=== PATIENT | female | born 1985 | race Hispanic/Latino ===

== ENCOUNTER 2018-02-26 06:35 | Inpatient (IN) | payer BC ==
[2018-02-26] MEDS ORDERED: Methylergonovine 0.2 MG/ML VIAL IM PRN (07:43)
[2018-02-26] MEDS ORDERED: Lidocaine 1% (PF) 30 ML VIAL SC PRN (07:43)
[2018-02-26] MEDS ORDERED: Diphenoxylate HCl/Atropine Tablet PO PRN ×2 (07:43)
[2018-02-26] MEDS ORDERED: Carboprost 250 MCG/ML AMP IM PRN (07:43)
[2018-02-26] MEDS ORDERED: Ibuprofen 800 MG TAB PO PRN (07:43)
[2018-02-26] MEDS ORDERED: Promethazine HCl 25 MG/ML VIAL IM PRN (07:43)
[2018-02-26] MEDS ORDERED: LR / Pitocin 40 units/1000 ml 1,000 ML IV PRN (07:43)
[2018-02-26] MEDS ORDERED: Ondansetron HCl/PF 4 MG/2 ML Vial IVP PRN ×2 (07:43→14:13)
[2018-02-26] MEDS ORDERED: Acetaminophen 500 MG TAB PO PRN (07:43)
[2018-02-26] MEDS ORDERED: HYDROcodone/Acetaminophen 5/325 mg Tablet PO PRN ×2 (07:43)
[2018-02-26] MEDS ORDERED: Misoprostol 200 MCG TAB PR PRN (07:43)
[2018-02-26] MEDS ORDERED: Lactated Ringer's 1,000 ML IV SCH (07:45)
--- NOTE | 2018-02-26 08:01 | PDOC.LDHP ---
Labor and Delivery H&P HPI: 32 y/o at 38w1d, patient of Dr. Hancock, present with painful contractions since this morning. Denies VB, LOF, or decreased FM. ROS neg for HEENT, CV, pulm, GI, , neuro, psych, skin, musculoskeletal, or constitutional symptoms other than mentioned above. OB History Details: 1 prior LTCS, followed by successful Current complications: gestational diabetes Current medications: pre- vitamins Previous surgical history: low tranverse CS Allergies/Adverse Reactions: Allergies Allergy/AdvReac Type Severity Reaction Status Date / Time No Known Allergies Allergy Verified 08/17/15 09:03 Social history: none - Physical Exam Vital signs reviewed and normal: yes General: NAD, resting Lungs: nonlabored breathing Abdomen: gravid Extremeties: no edema FHT: category 1 [place] contractions every: 3-5 mins - Vaginal Exam cm dilated: 4 Effacement: 90% Station: -1 - OB Labs Blood type: A RH: positive Antibody Screen: negative HIV: negative RPR: negative HEPSAg: negative 1 hour GCT: positive 3 hour GTT: positive GBS: negative Rubella: immune - Assessment L&D Assessment: term patient in labor - Plan Plan: admit to L&D, labor augmentation if indicated, informed consent obtained, anesthesia consult for pain management -: Dr. Hancock notified
[2018-02-26 08:19] LABS: Hemoglobin 13.7 g/dL (12.0-16.0); Mean Corpuscular HGB CONC 34.3 g/dL (32.0-36.0); Mean Corpuscular Hemoglobin 29.4 pg (27.0-31.0); Mean Corpuscular Volume 85.7 fl (81.0-99.0); Mean Platelet Volume 10.4 fL (7.4-10.4); Platelet Count 149 thou/uL (130-400); RBC Distribution Width 13.1 % (11.5-14.5); Red Blood Cell (RBC) Count 4.67 mill/uL (4.20-5.40); White Blood Cell (WBC) Count 10.6 thou/uL (4.8-10.8)
[2018-02-26 08:28] LABS: Glucose 82 mg/dL (70-105)
[2018-02-26 08:50] LABS: Syphilis Antibody Nonreactive (Nonreactive); Syphilis Antibody Index 0.04 S/CO (<1.00 Non-Reactive)
[2018-02-26 08:51] LABS: HBSAg Index 0.15 S/CO (0-0.99); Hep B Surf Ag Non-Reactive S/CO (NonReactive)
--- NOTE | 2018-02-26 09:58 | PDOC.LDPN ---
Labor & Delivery Progress Note - Subjective Subjective: painful contractions - Objective Vital signs reviewed and normal: yes General: breathing through contractions Dilation: 8 Effacement: 100% Station: 0 FHT: category 1 [place] contractions every: 3 AROM: clear fluid - Assessment (1) 38 weeks gestation of Code(s): Z3A.38 - 38 WEEKS GESTATION OF Current Visit: Yes Status : Acute (2) Gestational diabetes mellitus (GDM) Code(s): O24.419 - GESTATIONAL DIABETES MELLITUS IN , UNSP CONTROL Current Visit: Yes Status: Acute (3) History of section Code(s): Z98.89 - OTHER SPECIFIED POSTPROCEDURAL STATES * DO NOT USE * Current Visit: No Status: Acute Plan: continue plan of care -: A/P: Active labor, consented for TOLAC, anticapte transition to 2nd stage of labor soon.
[2018-02-26] MEDS ORDERED: LR / Pitocin 40 units/1000 ml 1,000 ML ONE (10:24)
--- NOTE | 2018-02-26 11:05 | PDOC.OPDEL ---
OB Operative/Delivery Note Delivery Dr/Surgeon: Santi Pre-Delivery Diagnosis: active labor Procedure/Post Delivery Dx: vaginal delivery after CS Weeks gestation: 38 Anesthesia: local (to perineum) - Findings A Sex: female Weight: 9 lb 10 oz - 1 min: 9 - 5 min: 9 - Additional Findings/Plan Placenta delivered: spontaneous Repaired Obstetrical Laceration: 1st degree (left sidewall) Estimated blood loss: 300ml Compilations/Other Findings: Shoulder dystocia resolved with suprapubic pressure and McRobert's, delivery from head to shoulders <20 sec. Right should was anterior shoulder, moving UE well immediately after delivery. Post delivery plan: routine recovery
[2018-02-26] MEDS ORDERED: Adacel (T-DAP) 0.5 ML VIAL IM ONE (14:13)
[2018-02-26] MEDS ORDERED: Benzocaine/Menthol 20-0.5% 60 ML CAN TOP PRN (14:13)
[2018-02-26] MEDS ORDERED: Bisacodyl 10 MG SUPP PR PRN (14:13)
[2018-02-26] MEDS ORDERED: LR / Pitocin 40 units/1000 ml 1,000 ML IV SCH (14:13)
[2018-02-26] MEDS ORDERED: Acetaminophen/Codeine 30-300mg Tablet PO PRN ×2 (14:13)
[2018-02-26] MEDS ORDERED: Milk Of Magnesia 30 ML UDCUP PO PRN (14:13)
[2018-02-26] MEDS: Ibuprofen 800 MG TAB PO SCH ×2 (16:20→21:09)
[2018-02-26] MEDS: Ferrous Sulfate 325 MG TAB PO SCH (17:40)
[2018-02-26] MEDS: Docusate Calcium (SURFAK) 240 MG CAP PO SCH (21:07)
[2018-02-27] MEDS: Ibuprofen 800 MG TAB PO SCH ×3 (05:06→21:17)
--- NOTE | 2018-02-27 08:53 | PDOC.PP ---
Post Progress Note Post Day #: 1 Subjective: nursing well, no concerns, not sure if she wants DC today or tomorrow PO intake tolerated: yes Flatus: yes Ambulation: yes Vital Signs (12 hours) Temp Pulse Resp BP 02/27/18 08:00 98.2 F 70 20 111/76 02/27/18 05:00 98.0 F 66 20 02/27/18 00:00 99.0 F 73 20 109/65 Weight Weight 191 lb - Physical Examination General: NAD Respiratory: non-labored breathing Abdominal: no distention Fundus firm & at: below umb Extremities: negative homans (B) Result Diagrams: 02/26/18 08:07 02/26/18 08:07 Additional Labs: Post Labs Blood Type A POSITIVE 02/26/18 08:07 Hep Bs Antigen Non-Reactive S/CO (NonReactive) 02/26/18 08:07 (1) 38 weeks gestation of Code(s): Z3A.38 - 38 WEEKS GESTATION OF Status: Acute (2) Gestational diabetes mellitus (GDM) Code(s): O24.419 - GESTATIONAL DIABETES MELLITUS IN , UNSP CONTROL Status: Acute (3) History of section Code(s): Z98.89 - OTHER SPECIFIED POSTPROCEDURAL STATES * DO NOT USE * Status : Acute - Assessment/Plan PPD 1 p following active labor. Likely DC tomorrow.
[2018-02-27] MEDS: Docusate Calcium (SURFAK) 240 MG CAP PO SCH ×2 (09:29→21:17)
[2018-02-27] MEDS: Ferrous Sulfate 325 MG TAB PO SCH ×2 (09:29→16:26)
[2018-02-27 20:52] VITALS: BP 114/60; TEMP 97.7
[2018-02-28] MEDS: Ibuprofen 800 MG TAB PO SCH (04:31)
[2018-02-28] MEDS: Ferrous Sulfate 325 MG TAB PO SCH (08:31)
[2018-02-28] MEDS: Docusate Calcium (SURFAK) 240 MG CAP PO SCH (08:31)
--- NOTE | 2018-02-28 12:07 | PDOC.PP ---
Post Progress Note Post Day #: 2 Subjective: no concerns PO intake tolerated: yes Flatus: yes Ambulation: yes Vital Signs (12 hours) Temp Pulse Resp 02/28/18 07:55 97.7 F 71 20 Weight Weight 191 lb - Physical Examination General: NAD Respiratory: non-labored breathing Fundus firm & at: below umb Skin: no rash Neurological: no gross focal deficits Psychiatric: A&Ox3, normal affect Result Diagrams: 02/26/18 08:07 02/26/18 08:07 Additional Labs: Post Labs Blood Type A POSITIVE 02/26/18 08:07 Hep Bs Antigen Non-Reactive S/CO (NonReactive) 02/26/18 08:07 (1) 38 weeks gestation of Code(s): Z3A.38 - 38 WEEKS GESTATION OF Status: Acute (2) Gestational diabetes mellitus (GDM) Code(s): O24.419 - GESTATIONAL DIABETES MELLITUS IN , UNSP CONTROL Status: Acute (3) History of section Code(s): Z98.89 - OTHER SPECIFIED POSTPROCEDURAL STATES * DO NOT USE * Status : Acute - Assessment/Plan PPD2 doing well, DC home.
== END 2018-02-28 14:15 | disposition home or self-care (01) | DRG 775 ==
LOC: L&D/OP 06:35 → L&D 07:49 → 3SW 14:02
PROVIDERS: ADMIT Obstetrics & Gynecology; ATTEND Obstetrics & Gynecology
PROC: 10E0XZZ Delivery of Products of Conception, External Approach (ICD-10-PCS; principal; 2018-02-26)
DX: O34.211 Maternal care for low transverse scar from previous cesarean delivery (principal); O24.429 Gestational diabetes mellitus in childbirth, unspecified control; O70.0 First degree perineal laceration during delivery; Z3A.38 38 weeks gestation of pregnancy; Z37.0 Single live birth
CPT/HCPCS: 36415; 82947; 85027; 86780; 86850; 86900; 86901; 87340; 99285; J0595; J2001

== ENCOUNTER 2020-12-13 12:07 | Outpatient (CLI) | payer OTHER ==
--- NOTE | 2020-12-13 13:16 | RAD ---
PA AND LATERAL VIEWS CHEST: Date: 12/13/2020 HISTORY: Shortness of breath. FINDINGS: Comparison made with exam of 07/13/2004. The cardiomediastinum is normal. The lungs are expanded and clear. The bony thorax is normal. IMPRESSION: Normal exam. POS: [facility]
== END 2020-12-13 12:08 | disposition home or self-care (01) ==
LOC: BICRAD 12:07
PROVIDERS: ATTEND Family Medicine
DX: R06.02 Shortness of breath (principal)
CPT/HCPCS: 71046

== ENCOUNTER 2022-12-14 15:42 | Outpatient (CLI) | payer OTHER | END 2022-12-14 15:43 | disposition home or self-care (01) | LOC: BICULT 15:42 | PROVIDERS: ATTEND Advanced Practice Midwife | DX: Z34.92 Encounter for supervision of normal pregnancy, unspecified, second trimester (principal); Z3A.21 21 weeks gestation of pregnancy | CPT/HCPCS: 76805 ==